=== PATIENT | female | born 1980 | race Caucasian/White ===

== ENCOUNTER 2016-08-02 07:21 | Inpatient (IN) | payer BC ==
[2016-08-02] MEDS: Oxytocin in LR* 20 UNITS/1,000 ML BAG IVPB SCH ×2 (09:14→19:27)
[2016-08-02 09:35] LABS: Hematocrit 40 % (35-47); Hemoglobin 13.1 g/dl (12.0-16.0); Mean Corpuscular HGB Conc 33 g/dl (31-36); Mean Corpuscular Hemoglobin 29 pg (27-31); Mean Corpuscular Volume 87 fL (80-97); Mean Platelet Volume 9 um3 (7.4-10.4); Red Blood Count 4.56 10^6/ul (4.0-5.4); Red Cell Distribution Width 13 % (10.5-15); White Blood Count 12.1 10^3/ul (3.5-10.8)
[2016-08-02] MEDS ORDERED: OBEPIDURAL* 250 ML ONE (11:56)
[2016-08-02] MEDS ORDERED: Phenylephrine IV* 40 MCG/ML 10 ML SYRINGE IV PUSH PRN ×2 (12:38)
[2016-08-02] MEDS ORDERED: Sodium Citrate/Citric Acid* 15 ML UDC PO PRN (12:38)
[2016-08-02] MEDS ORDERED: Famotidine TAB* 20 MG PO PRN (12:38)
[2016-08-02] MEDS ORDERED: OBEPIDURAL* 250 ML EPIDURAL SCH (13:00)
[2016-08-02] MEDS ORDERED: Witch Hazel PAD* JAR TOPICAL PRN (19:07)
[2016-08-02] MEDS ORDERED: Ibuprofen TAB* 600 MG PO PRN (19:07)
[2016-08-02] MEDS ORDERED: Dibucaine 1% 28.35 GM TUBE PR PRN (19:07)
[2016-08-02] MEDS ORDERED: Glycerin ADULT SUPP PR PRN (19:07)
[2016-08-02] MEDS ORDERED: Acetaminophen TAB* 325 MG PO PRN (19:07)
[2016-08-02] MEDS ORDERED: Oxytocin in LR* 20 UNITS/1,000 ML BAG IVPB SCH (20:00)
[2016-08-02] MEDS ORDERED: Simethicone TAB* 80 MG TAB.CHEW PO SCH (21:00)
[2016-08-03 08:44] LABS: Hematocrit 33 % (35-47); Mean Corpuscular HGB Conc 34 g/dl (31-36); Mean Corpuscular Hemoglobin 29 pg (27-31); Mean Corpuscular Volume 87 fL (80-97); Mean Platelet Volume 9 um3 (7.4-10.4); Red Blood Count 3.75 10^6/ul (4.0-5.4); Red Cell Distribution Width 13 % (10.5-15); White Blood Count 15.8 10^3/ul (3.5-10.8)
[2016-08-03] MEDS ORDERED: Ferrous Gluconate TAB* 324 MG TAB PO SCH (09:00)
[2016-08-03] MEDS: Docusate CAP* 100 MG PO SCH ×3 (09:09→20:09)
[2016-08-04 08:07] VITALS: BP 101/62
[2016-08-04] MEDS: Docusate CAP* 100 MG PO SCH (09:01)
== END 2016-08-04 12:48 | disposition home or self-care (01) | DRG 542 ==
LOC: MCHOBOUT 07:21 → MCHOB 08:16
PROVIDERS: ADMIT Obstetrics & Gynecology; ATTEND Obstetrics & Gynecology
PROC: 10E0XZZ Delivery of Products of Conception, External Approach (ICD-10-PCS; principal; 2016-08-02)
PROC: 3E033VJ Introduction of Other Hormone into Peripheral Vein, Percutaneous Approach (ICD-10-PCS; 2016-08-02)
PROC: 0DQR0ZZ Repair Anal Sphincter, Open Approach (ICD-10-PCS; 2016-08-02)
PROC: 0W8NXZZ Division of Female Perineum, External Approach (ICD-10-PCS; 2016-08-02)
DX: O48.0 Post-term pregnancy (principal); O70.20 Third degree perineal laceration during delivery, unspecified; O69.9XX0 Labor and delivery complicated by cord complication, unspecified, not applicable or unspecified; Z37.0 Single live birth; Z3A.41 41 weeks gestation of pregnancy
CPT/HCPCS: 36415; 85025; 86850; 86900; 86901; A9270-GY

== ENCOUNTER 2020-02-16 08:00 | Inpatient (IN) ==
[2020-02-16] MEDS ORDERED: Lactated Ringers 1000 ml BAG 1,000 ML IV ONE (08:54)
[2020-02-16] MEDS ORDERED: Oxytocin in LR 20 UNITS/1,000 ML BAG IVPB SCH ×2 (09:00→23:45)
[2020-02-16] MEDS ORDERED: Lactated Ringers 1000 ml BAG 1,000 ML IV SCH (09:00)
[2020-02-16 09:41] LABS: ABS Basophils 0.1 10^3/ul (0-0.2); ABS Eosinophils 0.1 10^3/ul (0-0.6); ABS Lymphocytes 1.7 10^3/ul (1.0-4.8); ABS Monocytes 0.6 10^3/ul (0-0.8); ABS Neutrophils 6.9 10^3/ul (1.5-7.7); Eosinophil % 0.9 %; Hematocrit 37 % (35-47); Hemoglobin 12.8 g/dL (12.0-16.0); Lymphocyte % 18.6 %; Mean Corpuscular HGB Conc 35 g/dL (31-36); Mean Corpuscular Hemoglobin 29 pg (27-31); Mean Corpuscular Volume 85 fL (80-97); Mean Platelet Volume 9.3 fL (7.4-10.4); Platelet Count 153 10^3/uL (150-450); Red Blood Count 4.35 10^6 /uL (3.70-4.87); Red Cell Distribution Width 14 % (10-15); White Blood Count 9.3 10^3/uL (3.5-10.8)
[2020-02-16 10:05] LABS: Urine Benzodiazepine Screen None Detected (None Detect); Urine Cannabinoids Screen None Detected (None Detect); Urine Opiates Screen None Detected (None Detect)
[2020-02-16] MEDS ORDERED: OBEPIDURAL 250 ML EPIDURAL ONE (16:54)
[2020-02-16] MEDS ORDERED: fentaNYL 100 mcg/2 ml 50 MCG/ML VIAL ONE (17:06)
[2020-02-16] MEDS ORDERED: Lidocaine 1% MPF 5 ML VIAL ONE (17:23)
[2020-02-16] MEDS ORDERED: Witch Hazel PAD JAR TOPICAL PRN (23:11)
[2020-02-16] MEDS ORDERED: Glycerin ADULT 2.4 gm SUPP PR PRN (23:11)
[2020-02-16] MEDS ORDERED: Dibucaine 1% OINT 28.35 GM TUBE PR PRN (23:11)
[2020-02-17] MEDS ORDERED: Ammonia Inhalant 1 EA AMP ONE (01:33)
[2020-02-17] MEDS ORDERED: Lidocaine 1% VIAL 10 MG/ML VIAL ONE (02:04)
[2020-02-17 07:04] LABS: ABS Basophils 0.1 10^3/ul (0-0.2); ABS Eosinophils 0.1 10^3/ul (0-0.6); ABS Lymphocytes 1.8 10^3/ul (1.0-4.8); ABS Monocytes 0.9 10^3/ul (0-0.8); ABS Neutrophils 11.7 10^3/ul (1.5-7.7); Eosinophil % 0.4 %; Hematocrit 31 % (35-47); Hemoglobin 10.9 g/dL (12.0-16.0); Lymphocyte % 12.3 %; Mean Corpuscular HGB Conc 35 g/dL (31-36); Mean Corpuscular Hemoglobin 30 pg (27-31); Mean Corpuscular Volume 84 fL (80-97); Mean Platelet Volume 9.3 fL (7.4-10.4); Platelet Count 143 10^3/uL (150-450); Red Blood Count 3.67 10^6 /uL (3.70-4.87); Red Cell Distribution Width 14 % (10-15); White Blood Count 14.5 10^3/uL (3.5-10.8)
[2020-02-18 07:44] VITALS: BP 116/66
== END 2020-02-18 10:50 | disposition home or self-care (01) | DRG 560 ==
LOC: MCHOBOUT 08:00 → MCHOB 08:40
PROVIDERS: ADMIT Midwife; ATTEND Midwife